=== PATIENT | female | born 1970 | race Caucasian/White ===

== ENCOUNTER 2017-12-04 06:14 | Day surgery (SDC) | payer OTHER ==
[2017-12-04] MEDS ORDERED: FENTAnyl 50 MCG/ML VIAL ×2 (08:42)
[2017-12-04] MEDS ORDERED: MIDAZOLAM 1 MG/ML 2 ML INJ ×3 (08:43)
== END 2017-12-04 17:32 | disposition home or self-care (01) ==
LOC: GIL 06:14
DX: Z12.11 Encounter for screening for malignant neoplasm of colon (principal)
CPT/HCPCS: 45378; 84703